=== PATIENT | male | born 1970 | race African-American/Black ===

== ENCOUNTER 2022-09-28 17:54 | Observation (INO) ==
[2022-09-28] MEDS ORDERED: SODIUM CHLORIDE 0.9% 1,000 ML IV STA ×2 (19:45→20:57)
[2022-09-28 20:00] LABS: Basophils % 0.1 % (0.0-0.8); Eosinophils % 0.1 % (0.00-10.9); Hematocrit 43.4 VOL% (42.0-52.0); Hemoglobin 14.6 GM/DL (14.0-18.0); Immature Granulocytes % 0.3 %; Immature Granulocytes Absolute 0.02 #; Lymphocytes # 1.8 10*3/uL (1.4-4.0); Lymphocytes % 26.7 % (21.2-54.2); Mean Corpuscular HGB Conc 33.6 GM/DL (32-36); Mean Platelet Volume 10.8 FL (9.6-12.0); Monocytes # 0.5 10*3/uL (0.11-0.8); Monocytes % 7.3 % (1.7-12.7); Neutrophils % 65.5 % (38.7-73.9); Platelet Count 262 T/CUMM (130-400); Red Blood Count 5.23 MC/CUMM (3.8-5.5); Red Cell Distribution Width 12.4 % (9.3-17.3); White Blood Count 6.9 T/CUMM (4-12)
[2022-09-28 20:08] LABS: INR 0.9; PT Patient Result 10.1 SECS (10.1-12.1)
[2022-09-28 20:15] LABS: Albumin 4.6 G/DL (3.4-5.0); Bilirubin,Total 0.5 MG/DL (0.20-1.00); Calcium 10.1 MG/DL (8.5-10.1); Osmolality,Calculated 278.8 MOS/KG (273-304); Potassium 3.8 MMOL/L (3.5-5.1); Thyroid Stimulating Hormone 1.33 uIU/ml (0.358-3.74); Total Protein 8.9 G/DL (6.4-8.2)
[2022-09-28 20:28] LABS: Squamous Epithelial Cell,Urine Occasional /HPF (0-10)
[2022-09-28 20:29] LABS: Bilirubin,Urine Small mg/dL (Negative); Blood, Urine Trace mg/dL (Negative); Glucose,Urine (UA) 500 mg/dL (Negative); Ketones,Urine 15 mg/dL (Negative); Nitrite,Urine Negative (Negative); Protein,Urine Negative (Negative); Urine Appearance Clear (Clear); Urine Color Yellow (Yellow); Urine Urobilinogen 0.2 eU/dL (<2.0)
[2022-09-28] MEDS ORDERED: INSULIN REGULAR 100 UNIT/ML IV STA (20:57)
[2022-09-28] MEDS ORDERED: GLUCAGON 1 MG VIAL IM PRN (22:20)
[2022-09-28] MEDS ORDERED: ONDANSETRON 4 MG/2 ML VIAL IV PRN (22:20)
[2022-09-28] MEDS ORDERED: ACETAMINOPHEN 325 MG TABLET PO PRN (22:20)
[2022-09-28] MEDS ORDERED: DEXTROSE 50% 25 GM/50 ML VIAL IV PRN (22:22)
[2022-09-28] MEDS ORDERED: DEXTROSE 10% 250 ML BAG IV PRN (22:54)
[2022-09-29] MEDS: SODIUM CHLORIDE 0.9% 1,000 ML IV SCH ×2 (01:19→08:27)
[2022-09-29 07:08] LABS: Albumin 3.4 G/DL (3.4-5.0); Bilirubin,Total 0.5 MG/DL (0.20-1.00); Potassium 3.5 MMOL/L (3.5-5.1); Total Protein 7.4 G/DL (6.4-8.2)
[2022-09-29] MEDS ORDERED: amLODIPine 5 MG TABLET PO SCH (09:00)
[2022-09-29] MEDS ORDERED: ENOXAPARIN 40 MG/0.4 ML SYRINGE SUBCUT SCH (09:00)
[2022-09-29] MEDS ORDERED: hydroCHLOROthiazide 12.5 MG CAPSULE PO SCH (09:00)
[2022-09-29] MEDS ORDERED: PANTOPRAZOLE 40 MG TABLET PO SCH (09:00)
[2022-09-29] MEDS ORDERED: PNEUMOCOCCAL VACCINE (23 VALENT) 0.5 ML VIAL IM ONE (09:00)
[2022-09-29] MEDS ORDERED: INFLUENZA VIRUS VACCINE 0.5 ML SYRINGE IM ONE (09:00)
[2022-09-29] MEDS: INSULIN REGULAR 100 UNIT/ML SUBCUT SCH ×2 (09:18→11:56)
[2022-09-29] MEDS ORDERED: metFORMIN 500 MG TABLET PO SCH (11:00)
[2022-09-29 11:52] VITALS: BP 152/83
== END 2022-09-29 13:15 | disposition home or self-care (01) ==
LOC: N.ED 17:54 → N.EDINP 17:54 → N.3E 23:05
PROVIDERS: ADMIT Hospitalist; ATTEND Hospitalist